=== PATIENT | male | born 1955 | race Caucasian/White ===

== ENCOUNTER 2020-05-07 11:22 | Outpatient (CLI) | payer BC, MEDICARE | END 2020-05-07 11:23 | disposition home or self-care (01) | LOC: COV 11:22 | PROVIDERS: ATTEND Family Medicine | DX: Z20.828 Contact with and (suspected) exposure to other viral communicable diseases (principal) ==

== ENCOUNTER 2020-06-25 16:37 | Outpatient (CLI) | payer BC, MEDICARE | END 2020-06-25 16:38 | disposition home or self-care (01) | LOC: COV 16:37 | PROVIDERS: ATTEND Family Medicine | DX: Z20.828 Contact with and (suspected) exposure to other viral communicable diseases (principal) ==

== ENCOUNTER 2023-07-20 11:37 | Emergency (ER) | payer MEDICARE, OTHER ==
--- NOTE | 2023-07-20 16:20 | XRAY Report ---
PROCEDURE: Foot 3+V LT INDICATIONS: PAIN/TENDERNESS L FOOT/ARCH TECHNIQUE: 3 views of the foot were acquired. COMPARISON: None. FINDINGS: Bones: No fractures or dislocations. No suspicious bony lesions. Soft tissues: No suspicious soft tissue calcifications or masses. IMPRESSION: No acute fracture. No osseous lesion. If symptoms and/or clinical suspicion for patholog y continue, further assessment with repeat plain films, or advanced imaging (e.g., CT, MRI, or bone s can) is recommended for further assessment. Reviewed by: Bharati Villar MD on 07/20/2023 4:19 PM PST Approved by: Bharati Villar MD on 07/20/2023 4:19 PM [facility] Station ID: [id number]
--- NOTE | 2023-07-20 16:44 | ED Physician Documentation ---
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 Very tender to the touch and with movement of walking.) Similar symptoms before: Has not had sx before (denies history of gout or arthritis in other joints.) Review of Systems Constitutional: denies: Fever, Chills Skin: denies: Rash, Abrasion (s), Laceration (s) Neurologic: denies: Focal weakness, Numbness PD PAST MEDICAL HISTORY - Past Medical History Musculoskeletal: None - Present Medications Home Medications: Ambulatory Orders Medication Instructions Recorded Confirmed dexAMETHasone [Decadron] 4 mg PO DAILY #7 tablet 07/20/23 - Allergies Allergies/Adverse Reactions: Allergies Allergy/AdvReac Type Severity Reaction Status Date / Time No Known Drug Allergies Allergy Verified 07/20/23 13:10 PD ED PE NORMAL - Vitals Vital signs reviewed: Yes - General General: Alert and oriented X 3, Well developed/nourished - Derm Derm: Normal color, Warm and dry - Extremities Extremities: Other (left foot very tender to touch with faint warmth and redness plantar and medial arch area. No skin sores. passive stretch not too painful. ) - Neuro Neuro: No motor deficit, No sensory deficit Results - Vitals Vitals: Oxygen O2 Source Non-rebreather mask - Rads (name of study) foot Relevant Findings:: Prelim report reviewed (no fractures nor osseous lesions), EMP independent interpretation of test PD Medical Decision Making - ED course Complexity details: reviewed results (xray wotithout lesions), considered differential (given location, likely plantar fasciitis, but not hurting with passive stretch too much. Very tender to touch with some warmth, so consdier atypical gout location. Similar treatment initially. ), d/w patient Departure - Departure Disposition: 01 Home, Self Care Clinical Impression: Plantar fasciitis of left foot Condition: Stable Record reviewed to determine appropriate education?: Yes Instructions: ED Plantar Fasciitis Follow-Up: EMA GARCIA MD [Primary Care Provider] - Tiffanie Tello DPM [Provider Admit Priv/Credential] - Prescriptions: dexAMETHasone [Decadron] 4 mg PO DAILY #7 tablet Comments: This sounds like plantar fasciitis which is inflammation of the tighter tissue on the bottom of the foot. Alternative could be a unusual location for gout which is also an inflammatory condition. I would treat this with lessening the degree of walking and activity over the next several days to have less stretching on the bottom of the foot. Also a heel lift or heel cup to raise both heels very slightly and this takes some of the tension off the tissue on the bottom of the foot when standing and walking. We can also go with anti-inflammatories. Given your kidney issue, we would use a steroid anti-inflammatory rather than NSAIDs. I wrote for dexamethasone daily for the next week. 2 this had Tylenol 500 to 650 mg 4 times daily for the next several days to week for pain. Stretching of the tissue on the bottom of the foot can be helpful as well a couple of times daily. Recheck if not improved well over the next several days to a week. If you are having consistent symptoms, follow-up with your primary care or even a body designer. Forms: PCP List Discharge Date/Time: 07/20/23 17:13
[2023-07-20] MEDS ORDERED: ACETAMINOPHEN 500 MG TABLET PO STA (16:57)
[2023-07-20] MEDS ORDERED: dexAMETHasone 4 MG TABLET PO STA (16:57)
[2023-07-20 17:14] VITALS: BP 151/98; O2SAT 98
== END 2023-07-20 17:13 | disposition home or self-care (01) ==
LOC: ED 11:37
DX: M72.2 Plantar fascial fibromatosis (principal)
CPT/HCPCS: 73630; 99283; 99284; A9270; J8540